=== PATIENT | male | born 1955 | race Caucasian/White ===

== ENCOUNTER 2017-02-19 19:09 | Inpatient (IN) | payer MEDICARE ==
[~2017-02-19] VITALS: Ht 165.1 cm; Wt 79.8 kg
[2017-02-19 19:15] VITALS: BP 97/56; PULSE 72; RESP 20; TEMP 98.2; O2SAT 99
[2017-02-19 19:20] VITALS: O2SAT 98
[2017-02-19] MEDS ORDERED: TETANUS/DIPHTHERIA TOXOID ADULT 0.5 ML VIAL IM ONE (19:45)
[2017-02-19] MEDS ORDERED: SODIUM CHLORIDE 0.9% FLUSH 10 ML FLUSH IVF PRN (19:45)
[2017-02-19] MEDS ORDERED: SODIUM CHLOR 0.9% 1000 ML INJ 1,000 ML IV ONE (19:45)
[2017-02-19] MEDS ORDERED: ONDANSETRON HCL 4 MG/2 ML VIAL IV PUSH ONE (19:45)
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
[2017-02-19 20:14] LABS: BASOPHIL % 0.4 % (0.0-2.0); EOSINOPHIL # 0.1 TH/MM3 (0-0.4); EOSINOPHIL % 0.7 % (0.0-4.0); HEMATOCRIT 38.6 % (39.0-51.0); HEMOGLOBIN 13.3 GM/DL (13.0-17.0); LYMPH % 5.1 % (9.0-44.0); LYMPHOCYTE # 0.5 TH/MM3 (1.0-4.8); MEAN CELL VOLUME 89.2 FL (80.0-100.0); MEAN CORPUSCULAR HEMOGLOBIN 30.9 PG (27.0-34.0); MEAN CORPUSCULAR HGB CONC 34.6 % (32.0-36.0); MEAN PLATELET VOLUME 7.6 FL (7.0-11.0); MONOCYTE # 0.7 TH/MM3 (0-0.9); NEUT % 86.8 % (16.0-70.0); PLATELET COUNT 208 TH/MM3 (150-450); RED BLOOD COUNT 4.32 MIL/MM3 (4.50-5.90); RED CELL DISTRIBUTION WIDTH 12.8 % (11.6-17.2); WHITE BLOOD COUNT 10.3 TH/MM3 (4.0-11.0)
[2017-02-19 20:34] LABS: INTERNATIONAL NORMALIZED RATIO 1.1 RATIO; PROTHROMBIN TIME - PATIENT 10.7 SEC (9.8-11.6)
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
[2017-02-19] MEDS ORDERED: IOHEXOL 350 MG/ML 10 ML VIAL (for RAD DIAG) IVCONTRAST ONE (20:38)
[2017-02-19 20:44] LABS: BICARBONATE 23.2 MEQ/L (21.0-32.0); CREATININE 0.87 MG/DL (0.60-1.30)
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
--- NOTE | 2017-02-19 21:06 | PD ---
Physical Exam Narrative Patient was seen and examined with my photo studio assistant. Data Data Last Documented VS Vital Signs Date Time Temp Pulse Resp B/P (MAP) Pulse Ox O2 Delivery O2 Flow Rate FiO2 02/19/17 21:10 66 16 141/80 (100) 98 Room Air 02/19/17 19:15 98.2 Orders Orders Chest, Single Ap (02/19/17 19:38) Ct Abd/Pel W Iv Contrast(Rout) (02/19/17 19:38) Ct Brain W/O Iv Contrast(Rout) (02/19/17 19:38) Ecg Monitoring (02/19/17 19:38) Iv Access Insert/Monitor (02/19/17 19:38) Oximetry (02/19/17 19:38) Sodium Chloride 0.9% Flush (Ns Flush) (02/19/17 19:45) Basic Metabolic Panel (Bmp) (02/19/17 19:38) Complete Blood Count With Diff (02/19/17 19:38) Prothrombin Time / Inr (Pt) (02/19/17 19:38) Act Partial Throm Time (Ptt) (02/19/17 19:38) Ct Cerv Spine W/O Contrast (02/19/17 19:38) Ct Thorax/ Chest W Iv Contrast (02/19/17 19:38) Ct Thor Spine W Iv Contrast (02/19/17 19:38) Ct Lumb Spine W Iv Contrast (02/19/17 19:38) Oxygen Administration (02/19/17 19:38) Ondansetron Inj (Zofran Inj) (02/19/17 19:45) Wound Care (02/19/17 19:38) Tetanus/Diphtheria Tox Adult (Tetanus/Di (02/19/17 19:45) Sodium Chlor 0.9% 1000 Ml Inj (Ns 1000 M (02/19/17 19:45) Hip, Uni(Ap&Lat) W Ap Pelvis (02/19/17 ) Shoulder, Limited(2vws) (02/19/17 ) Iohexol 350 Inj (Omnipaque 350 Inj) (02/19/17 20:38) Splint Or Brace Apply/Monitor (02/19/17 21:01) Type And Screen (02/19/17 21:01) Labs Laboratory Tests Test 02/19/17 19:55 White Blood Count 10.3 TH/MM3 Red Blood Count 4.32 MIL/MM3 Hemoglobin 13.3 GM/DL Hematocrit 38.6 % Mean Corpuscular Volume 89.2 FL Mean Corpuscular Hemoglobin 30.9 PG Mean Corpuscular Hemoglobin Concent 34.6 % Red Cell Distribution Width 12.8 % Platelet Count 208 TH/MM3 Mean Platelet Volume 7.6 FL Neutrophils (%) (Auto) 86.8 % Lymphocytes (%) (Auto) 5.1 % Monocytes (%) (Auto) 7.0 % Eosinophils (%) (Auto) 0.7 % Basophils (%) (Auto) 0.4 % Neutrophils # (Auto) 9.0 TH/MM3 Lymphocytes # (Auto) 0.5 TH/MM3 Monocytes # (Auto) 0.7 TH/MM3 Eosinophils # (Auto) 0.1 TH/MM3 Basophils # (Auto) 0.0 TH/MM3 CBC Comment AUTO DIFF Prothrombin Time 10.7 SEC Prothromb Time International Ratio 1.1 RATIO Activated Partial Thromboplast Time 20.4 SEC Blood Urea Nitrogen 15 MG/DL Creatinine 0.87 MG/DL Random Glucose 130 MG/DL Calcium Level 9.0 MG/DL Sodium Level 139 MEQ/L Potassium Level 3.4 MEQ/L Chloride Level 103 MEQ/L Carbon Dioxide Level 23.2 MEQ/L Anion Gap 13 MEQ/L Estimat Glomerular Filtration Rate 90 ML/MIN MDM Supervised Visit with HARRIETT: Yes Diagnosis Primary Impression: Hemopneumothorax, right Additional Impressions: Fracture of right clavicle Qualified Codes: S42.031A - Displaced fracture of lateral end of right clavicle, initial encounter for closed fracture Fracture of rib of right side Qualified Codes: S22.41XA - Multiple fractures of ribs, right side, initial encounter for closed fracture Fracture of right scapula Qualified Codes: S42.111A - Displaced fracture of body of scapula, right shoulder, initial encounter for closed fracture Fracture, pelvis closed Qualified Codes: S32.511A - Fracture of superior rim of right pubis, initial encounter for closed fracture Admitting Information Admitting Physician Requests: Kenneth Graf MD Feb 19, 2017 21:06
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
[2017-02-19 21:10] VITALS: BP 141/80; PULSE 66; RESP 16; O2SAT 98
[2017-02-19] MEDS ORDERED: MORPHINE SULFATE 2 MG/ML INJ IV PUSH ONE (21:15)
[2017-02-19 21:18] LABS: BANDS 11 % (0-6); LYMPHOCYTES 5 % (9-44); METAMYELOCYTES 1 % (0-1); MONOCYTES 6 % (0-8); NEUTROPHIL # MANUAL DIFF 9.2 TH/MM3 (1.8-7.7); POLYS (SEG NEUTROPHILS) 77 % (16-70)
[2017-02-19 21:30] VITALS: O2SAT 95
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
[2017-02-19] MEDS ORDERED: ASPI-516 CHEW (21:59)
[2017-02-19] MEDS ORDERED: ATEN25TA PO (21:59)
[2017-02-19] MEDS ORDERED: TAMS5CAP PO (21:59)
[2017-02-19] MEDS ORDERED: AMLO5 PO (21:59)
[2017-02-19] MEDS ORDERED: BISACODYL 10 MG SUPP RECTAL PRN (22:00)
[2017-02-19] MEDS ORDERED: MISCELLANEOUS NURSING INFORMATION XX SCH (22:00)
[2017-02-19] MEDS ORDERED: NALOXONE HCL 0.4 MG/ML AMP IV PUSH PRN (22:00)
[2017-02-19] MEDS ORDERED: CHLORHEXIDINE GLUCONATE 2 % 1 PACK (2 CLOTHS) TOP PRN (22:00)
[2017-02-19] MEDS ORDERED: MAGNESIUM HYDROXIDE SUSP 30 ML CUP PO PRN (22:00)
[2017-02-19] MEDS ORDERED: SENNOSIDES 8.6 MG TAB PO PRN (22:00)
[2017-02-19] MEDS ORDERED: LACTULOSE SYRUP 20 GM/30 ML CUP PO PRN (22:00)
[2017-02-19] MEDS: PCA - TOTAL MG DILAUDID DELIVERED PER SHIFT OTHER SCH (22:00)
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
[2017-02-19] MEDS: SODIUM CHLOR 0.9% 1000 ML INJ 1,000 ML IV SCH (23:27)
[2017-02-19] MEDS: ACETAMINOPHEN 1000 MG/100 ML 100 ML IV SCH (23:28)
[2017-02-19] MEDS: METHOCARBAMOL 500 MG TAB PO SCH (23:28)
[2017-02-19 23:30] VITALS: BP 111/56; PULSE 83; RESP 16; O2SAT 100
[2017-02-19] MEDS: HYDROmorphone HCL PCA 6 MG/30 ML IV SCH (23:59)
[2017-02-20] VITALS (11 sets, daily range): BP systolic 101–144; BP diastolic 52–80; PULSE 60–97; RESP 11–18; TEMP 97.6–99.1; O2SAT 97–99
[2017-02-20] MEDS: ACETAMINOPHEN 1000 MG/100 ML 100 ML IV SCH ×3 (03:17→15:49)
[2017-02-20] MEDS: CHLORHEXIDINE GLUCONATE 2 % 1 PACK (2 CLOTHS) TOP SCH (04:00)
[2017-02-20 04:38] LABS: AUTOMATED NEUTROPHIL # 7.5 TH/MM3 (1.8-7.7); BASOPHIL % 0.2 % (0.0-2.0); EOSINOPHIL % 0.1 % (0.0-4.0); HEMATOCRIT 34.7 % (39.0-51.0); HEMOGLOBIN 11.9 GM/DL (13.0-17.0); LYMPH % 4.3 % (9.0-44.0); LYMPHOCYTE # 0.4 TH/MM3 (1.0-4.8); MEAN CELL VOLUME 89.6 FL (80.0-100.0); MEAN CORPUSCULAR HEMOGLOBIN 30.7 PG (27.0-34.0); MEAN CORPUSCULAR HGB CONC 34.2 % (32.0-36.0); MEAN PLATELET VOLUME 7.6 FL (7.0-11.0); MONOCYTE # 0.9 TH/MM3 (0-0.9); NEUT % 85.4 % (16.0-70.0); PLATELET COUNT 213 TH/MM3 (150-450); RED BLOOD COUNT 3.87 MIL/MM3 (4.50-5.90); RED CELL DISTRIBUTION WIDTH 12.7 % (11.6-17.2); WHITE BLOOD COUNT 8.8 TH/MM3 (4.0-11.0)
--- NOTE | 2017-02-20 04:56 | RADRPT ---
EXAM DATE/TIME: 02/20/2017 03:57 [facility] COMPARISON: CHEST SINGLE AP, February 19, 2017, 20:12. INDICATIONS : Rib fracture. MEDICAL HISTORY : None. SURGICAL HISTORY : None. ENCOUNTER: Subsequent ACUITY: 2 days PAIN SCORE: Non-responsive. LOCATION: Bilateral chest FINDINGS: Single AP view of the chest. Patchy left lower lobe atelectasis slightly more prominent. Multiple rig ht-sided rib fractures again seen. Subcutaneous edema on the right. Cardiomediastinal silhouette with in normal limits. No evidence of pleural effusion or pneumothorax. CONCLUSION: Increase in patchy left lower lobe atelectasis. Multiple right-sided rib fractures. No pneumothorax i dentified.. Ravinder Hamilton MD on February 20, 2017 at 4:53 Board Certified Radiologist. This report was verified electronically.
[2017-02-20 05:09] LABS: BICARBONATE 25.6 MEQ/L (21.0-32.0); CALCIUM 8.5 MG/DL (8.5-10.1); CREATININE 0.76 MG/DL (0.60-1.30)
[2017-02-20] MEDS: PCA - TOTAL MG DILAUDID DELIVERED PER SHIFT OTHER SCH ×3 (05:30→21:53)
[2017-02-20] MEDS: METHOCARBAMOL 500 MG TAB PO SCH ×3 (06:00→21:52)
[2017-02-20] MEDS: FAMOTIDINE 20 MG TAB PO SCH ×2 (09:24→20:53)
[2017-02-20] MEDS: DOCUSATE SODIUM 50 MG/SENNA 8.6 MG TAB PO SCH ×2 (09:24→20:53)
[2017-02-20] MEDS: LIDOCAINE HCL 5% PATCH T-DERMAL SCH (09:25)
[2017-02-20] MEDS: SODIUM CHLOR 0.9% 1000 ML INJ 1,000 ML IV SCH ×2 (10:07→21:03)
[2017-02-20] MEDS: ENOXAPARIN SODIUM 30 MG/0.3 ML SYRINGE SQ SCH ×2 (10:49→23:22)
[2017-02-20] MEDS: BACITRACIN TOP OINT 15 GM TUBE TOPICAL SCH ×2 (12:03→21:00)
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
[2017-02-20] MEDS: HYDROmorphone HCL PCA 6 MG/30 ML IV SCH (15:48)
[2017-02-20] MEDS: ONDANSETRON HCL 4 MG/2 ML VIAL IV PUSH PRN (19:05)
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
[2017-02-21] VITALS (8 sets, daily range): BP systolic 111–157; BP diastolic 65–77; PULSE 65–83; RESP 12–19; TEMP 97.7–98.9; O2SAT 92–99
[2017-02-21] MEDS: CHLORHEXIDINE GLUCONATE 2 % 1 PACK (2 CLOTHS) TOP SCH (04:00)
[2017-02-21 04:24] LABS: AUTOMATED NEUTROPHIL # 5.3 TH/MM3 (1.8-7.7); BASOPHIL % 0.3 % (0.0-2.0); EOSINOPHIL # 0.1 TH/MM3 (0-0.4); EOSINOPHIL % 1.8 % (0.0-4.0); HEMATOCRIT 34.1 % (39.0-51.0); HEMOGLOBIN 11.5 GM/DL (13.0-17.0); LYMPHOCYTE # 0.4 TH/MM3 (1.0-4.8); MEAN CELL VOLUME 92.6 FL (80.0-100.0); MEAN CORPUSCULAR HEMOGLOBIN 31.3 PG (27.0-34.0); MEAN CORPUSCULAR HGB CONC 33.8 % (32.0-36.0); MEAN PLATELET VOLUME 7.6 FL (7.0-11.0); MONO % 10.4 % (0.0-8.0); MONOCYTE # 0.7 TH/MM3 (0-0.9); NEUT % 81.5 % (16.0-70.0); PLATELET COUNT 166 TH/MM3 (150-450); RED BLOOD COUNT 3.68 MIL/MM3 (4.50-5.90); RED CELL DISTRIBUTION WIDTH 12.8 % (11.6-17.2); WHITE BLOOD COUNT 6.5 TH/MM3 (4.0-11.0)
[2017-02-21 04:34] LABS: AST (GOT) 31 U/L (15-37); BICARBONATE 24.3 MEQ/L (21.0-32.0); BLOOD UREA NITROGEN 10 MG/DL (7-18); CALCIUM 8.4 MG/DL (8.5-10.1); CHLORIDE 108 MEQ/L (98-107); CREATININE 0.65 MG/DL (0.60-1.30); GLOMERULAR FILTRATION RATE 126 ML/MIN (>89); GLUCOSE,RANDOM 112 MG/DL (74-106); SODIUM (NA) 139 MEQ/L (136-145)
[2017-02-21 04:38] LABS: ALKALINE PHOSPHATASE 47 U/L (45-117); ALT (GPT) 47 U/L (12-78); TOTAL BILIRUBIN ADULT 0.8 MG/DL (0.2-1.0); TOTAL PROTEIN 6.5 GM/DL (6.4-8.2)
[2017-02-21] MEDS: METHOCARBAMOL 500 MG TAB PO SCH ×3 (06:00→21:33)
[2017-02-21] MEDS: PCA - TOTAL MG DILAUDID DELIVERED PER SHIFT OTHER SCH (06:00)
--- NOTE | 2017-02-21 06:18 | RADRPT ---
EXAM DATE/TIME: 02/21/2017 05:27 [facility] COMPARISON: CHEST SINGLE AP, February 20, 2017, 3:57. INDICATIONS : Evaluate [place] [facility] [place] : None. SURGICAL HISTORY : None. ENCOUNTER: Subsequent ACUITY: 3 days PAIN SCORE: 8/10 LOCATION: Bilateral chest FINDINGS: Displaced/overlapping right rib fractures are again noted. There is patchy parenchymal consolidation diffusely of the right lung and small pleural effusion, including some loculated superiorly and later ally not significantly changed. I don't see a pneumothorax but mild right chest wall emphysema persis ts. Mild atelectasis in left lung base. CONCLUSION: No significant change. No perceptible pneumothorax although some right chest wall emphysema persists. Oliver Rader MD on February 21, 2017 at 6:15 Board Certified Radiologist. This report was verified electronically.
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
[2017-02-21] MEDS: BACITRACIN TOP OINT 15 GM TUBE TOPICAL SCH ×2 (08:17→20:22)
[2017-02-21] MEDS: FAMOTIDINE 20 MG TAB PO SCH ×2 (08:20→20:20)
[2017-02-21] MEDS: DOCUSATE SODIUM 50 MG/SENNA 8.6 MG TAB PO SCH ×2 (08:20→20:20)
[2017-02-21] MEDS: LIDOCAINE HCL 5% PATCH T-DERMAL SCH (08:20)
[2017-02-21] MEDS: SODIUM CHLOR 0.9% 1000 ML INJ 1,000 ML IV SCH ×2 (09:34→21:34)
[2017-02-21] MEDS ORDERED: MORPHINE SULFATE 2 MG/ML INJ SQ PRN ×2 (10:00→16:00)
[2017-02-21] MEDS ORDERED: PNEUMOCOCCAL POLYVALENT INJ 25 MCG/0.5 ML SYR IM ONE (10:00)
[2017-02-21] MEDS ORDERED: INFLUENZA VIRUS VACCINE (QUADRIVALENT) 0.5 ML SYR IM ONE (10:00)
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
[2017-02-21] MEDS: ENOXAPARIN SODIUM 30 MG/0.3 ML SYRINGE SQ SCH (11:16)
[2017-02-21] MEDS: KETOROLAC TROMETHAMINE 30 MG/ML (IVP) VIAL IV PUSH SCH ×2 (11:17→15:27)
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
[2017-02-21] MEDS: ACETAMINOPHEN 1000 MG/100 ML 100 ML IV SCH ×2 (14:00→20:19)
[2017-02-21] MEDS: MAGNESIUM HYDROXIDE SUSP 30 ML CUP PO SCH (15:32)
[2017-02-22] VITALS: BP 122/74; PULSE 86; RESP 18; TEMP 97.4; O2SAT 94
[2017-02-22] MEDS: ACETAMINOPHEN 1000 MG/100 ML 100 ML IV SCH ×2 (02:22→10:02)
[2017-02-22] MEDS: ONDANSETRON HCL 4 MG/2 ML VIAL IV PUSH PRN (04:27)
[2017-02-22] MEDS: METHOCARBAMOL 500 MG TAB PO SCH ×3 (05:25→20:53)
[2017-02-22] MEDS: KETOROLAC TROMETHAMINE 30 MG/ML (IVP) VIAL IV PUSH SCH ×5 (05:25→22:34)
[2017-02-22] MEDS: MAGNESIUM HYDROXIDE SUSP 30 ML CUP PO SCH ×2 (05:27→17:34)
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
[2017-02-22 08:00] VITALS: BP 107/62; PULSE 78; RESP 17; TEMP 97.9; O2SAT 94
[2017-02-22 08:23] LABS: AUTOMATED NEUTROPHIL # 4.4 TH/MM3 (1.8-7.7); BASOPHIL % 0.1 % (0.0-2.0); EOSINOPHIL # 0.1 TH/MM3 (0-0.4); EOSINOPHIL % 1.2 % (0.0-4.0); HEMATOCRIT 29.4 % (39.0-51.0); HEMOGLOBIN 10.5 GM/DL (13.0-17.0); LYMPH % 2.3 % (9.0-44.0); LYMPHOCYTE # 0.1 TH/MM3 (1.0-4.8); MEAN CELL VOLUME 89.6 FL (80.0-100.0); MEAN CORPUSCULAR HEMOGLOBIN 32.1 PG (27.0-34.0); MEAN CORPUSCULAR HGB CONC 35.8 % (32.0-36.0); MEAN PLATELET VOLUME 7.9 FL (7.0-11.0); MONO % 7.5 % (0.0-8.0); MONOCYTE # 0.4 TH/MM3 (0-0.9); NEUT % 88.9 % (16.0-70.0); PLATELET COUNT 163 TH/MM3 (150-450); RED BLOOD COUNT 3.28 MIL/MM3 (4.50-5.90); RED CELL DISTRIBUTION WIDTH 12.4 % (11.6-17.2); WHITE BLOOD COUNT 4.9 TH/MM3 (4.0-11.0)
[2017-02-22 08:42] LABS: ALBUMIN 2.5 GM/DL (3.4-5.0); ALT (GPT) 33 U/L (12-78); AST (GOT) 23 U/L (15-37); BICARBONATE 25.5 MEQ/L (21.0-32.0); BLOOD UREA NITROGEN 11 MG/DL (7-18); CALCIUM 7.7 MG/DL (8.5-10.1); CHLORIDE 108 MEQ/L (98-107); GLOMERULAR FILTRATION RATE 138 ML/MIN (>89); GLUCOSE,RANDOM 106 MG/DL (74-106); SODIUM (NA) 140 MEQ/L (136-145)
[2017-02-22 08:44] LABS: ALKALINE PHOSPHATASE 44 U/L (45-117); TOTAL PROTEIN 5.8 GM/DL (6.4-8.2)
[2017-02-22] MEDS: LACTULOSE SYRUP 20 GM/30 ML CUP PO SCH (09:00)
[2017-02-22] MEDS: DOCUSATE SODIUM 50 MG/SENNA 8.6 MG TAB PO SCH ×2 (09:00→20:55)
[2017-02-22] MEDS: FAMOTIDINE 20 MG TAB PO SCH ×2 (09:58→20:53)
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
[2017-02-22] MEDS: LIDOCAINE HCL 5% PATCH T-DERMAL SCH (10:01)
[2017-02-22] MEDS: BACITRACIN TOP OINT 15 GM TUBE TOPICAL SCH ×2 (10:02→20:56)
[2017-02-22] MEDS: ENOXAPARIN SODIUM 30 MG/0.3 ML SYRINGE SQ SCH ×3 (10:36→22:36)
[2017-02-22 11:15] VITALS: BP 130/72; PULSE 69; RESP 17; TEMP 97.4; O2SAT 96
[2017-02-22] MEDS: SODIUM CHLOR 0.9% 1000 ML INJ 1,000 ML IV SCH ×2 (12:04→22:36)
[2017-02-22] MEDS ORDERED: MAGN30S PO (13:08)
[2017-02-22] MEDS ORDERED: PERI PO (13:08)
[2017-02-22 15:03] VITALS: BP 111/69; PULSE 67; RESP 17; TEMP 97.1; O2SAT 96
[2017-02-22 15:42] VITALS: O2SAT 96
[2017-02-22 20:00] VITALS: BP 119/65; PULSE 74; RESP 20; TEMP 98.2; O2SAT 95
[2017-02-22] MEDS: TAMSULOSIN HCL 0.4 MG CAP PO SCH (20:53)
[2017-02-23] VITALS (9 sets, daily range): BP systolic 121–155; BP diastolic 64–88; PULSE 55–79; RESP 15–18; TEMP 95.6–99; O2SAT 93–97
[2017-02-23] MEDS: KETOROLAC TROMETHAMINE 30 MG/ML (IVP) VIAL IV PUSH SCH ×4 (04:39→23:30)
[2017-02-23] MEDS: METHOCARBAMOL 500 MG TAB PO SCH ×3 (04:40→21:10)
[2017-02-23] MEDS: MAGNESIUM HYDROXIDE SUSP 30 ML CUP PO SCH ×2 (05:33→16:30)
[2017-02-23 05:51] LABS: AUTOMATED NEUTROPHIL # 3.5 TH/MM3 (1.8-7.7); BASOPHIL % 0.3 % (0.0-2.0); EOSINOPHIL # 0.1 TH/MM3 (0-0.4); EOSINOPHIL % 2.5 % (0.0-4.0); HEMATOCRIT 29.3 % (39.0-51.0); HEMOGLOBIN 10.3 GM/DL (13.0-17.0); LYMPH % 4.5 % (9.0-44.0); LYMPHOCYTE # 0.2 TH/MM3 (1.0-4.8); MEAN CELL VOLUME 90.2 FL (80.0-100.0); MEAN CORPUSCULAR HEMOGLOBIN 31.7 PG (27.0-34.0); MEAN CORPUSCULAR HGB CONC 35.2 % (32.0-36.0); MONO % 9.7 % (0.0-8.0); MONOCYTE # 0.4 TH/MM3 (0-0.9); PLATELET COUNT 198 TH/MM3 (150-450); RED BLOOD COUNT 3.25 MIL/MM3 (4.50-5.90); RED CELL DISTRIBUTION WIDTH 12.8 % (11.6-17.2); WHITE BLOOD COUNT 4.2 TH/MM3 (4.0-11.0)
[2017-02-23 06:15] LABS: ALBUMIN 2.7 GM/DL (3.4-5.0); AST (GOT) 29 U/L (15-37); BICARBONATE 23.6 MEQ/L (21.0-32.0); BLOOD UREA NITROGEN 13 MG/DL (7-18); CALCIUM 7.8 MG/DL (8.5-10.1); CHLORIDE 108 MEQ/L (98-107); CREATININE 0.72 MG/DL (0.60-1.30); GLOMERULAR FILTRATION RATE 112 ML/MIN (>89); GLUCOSE,RANDOM 127 MG/DL (74-106); SODIUM (NA) 139 MEQ/L (136-145)
[2017-02-23 06:19] LABS: ALKALINE PHOSPHATASE 44 U/L (45-117); ALT (GPT) 31 U/L (12-78); TOTAL PROTEIN 6.5 GM/DL (6.4-8.2)
--- NOTE | 2017-02-23 06:51 | RADRPT ---
EXAM DATE/TIME: 02/23/2017 06:10 [facility] COMPARISON: CHEST SINGLE AP, February 22, 2017, 4:57. INDICATIONS : Evaluate for pneumothorax, rib fractures post trauma. MEDICAL HISTORY : None. SURGICAL HISTORY : None. ENCOUNTER: Subsequent ACUITY: 4 - 6 days PAIN SCORE: Non-responsive. LOCATION: Bilateral chest FINDINGS: A single view of the chest demonstrates the lungs to be symmetrically aerated without evidence of mas s, infiltrate or effusion. The cardiomediastinal contours are unremarkable. Right clavicular fractur e and right-sided rib fractures are unchanged. No pneumothorax. A small amount of subcutaneous air ov erlies the right chest. CONCLUSION: 1. Clear lungs. No pneumothorax. 2. Right clavicular fracture and right-sided rib fractures. Sukhjinder Wheeler Jr., MD on February 23, 2017 at 6:49 Board Certified Radiologist. This report was verified electronically.
[2017-02-23] MEDS: LACTULOSE SYRUP 20 GM/30 ML CUP PO SCH (09:00)
[2017-02-23] MEDS: LIDOCAINE HCL 5% PATCH T-DERMAL SCH (09:00)
[2017-02-23] MEDS: FAMOTIDINE 20 MG TAB PO SCH ×3 (09:00→19:43)
[2017-02-23] MEDS: SODIUM CHLOR 0.9% 1000 ML INJ 1,000 ML IV SCH ×2 (09:25→19:36)
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
[2017-02-23] MEDS: DOCUSATE SODIUM 50 MG/SENNA 8.6 MG TAB PO SCH ×2 (09:32→19:40)
[2017-02-23] MEDS: BACITRACIN TOP OINT 15 GM TUBE TOPICAL SCH ×2 (09:33→19:41)
[2017-02-23] MEDS: ENOXAPARIN SODIUM 30 MG/0.3 ML SYRINGE SQ SCH ×2 (11:53→23:29)
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
[2017-02-23] MEDS: TAMSULOSIN HCL 0.4 MG CAP PO SCH (19:39)
[2017-02-24 03:37] VITALS: BP 142/76; PULSE 65; RESP 16; TEMP 96.3; O2SAT 96
[2017-02-24] MEDS: MAGNESIUM HYDROXIDE SUSP 30 ML CUP PO SCH ×2 (05:41→18:00)
[2017-02-24] MEDS: METHOCARBAMOL 500 MG TAB PO SCH ×3 (05:41→20:45)
[2017-02-24] MEDS: KETOROLAC TROMETHAMINE 30 MG/ML (IVP) VIAL IV PUSH SCH ×4 (05:41→23:18)
[2017-02-24 07:36] VITALS: BP 159/75; PULSE 81; RESP 19; TEMP 97.1; O2SAT 96
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
[2017-02-24] MEDS: DOCUSATE SODIUM 50 MG/SENNA 8.6 MG TAB PO SCH ×2 (09:00→20:45)
[2017-02-24] MEDS: FAMOTIDINE 20 MG TAB PO SCH ×2 (09:00→20:46)
[2017-02-24] MEDS: LACTULOSE SYRUP 20 GM/30 ML CUP PO SCH (09:00)
[2017-02-24] MEDS: BACITRACIN TOP OINT 15 GM TUBE TOPICAL SCH ×2 (09:00→20:46)
[2017-02-24] MEDS: LIDOCAINE HCL 5% PATCH T-DERMAL SCH (09:00)
[2017-02-24 11:34] VITALS: BP 156/77; PULSE 82; RESP 19; TEMP 97.6; O2SAT 99
[2017-02-24] MEDS ORDERED: METH500T3 PO (12:42)
[2017-02-24] MEDS ORDERED: PERC5TAB12 PO (12:42)
[2017-02-24] MEDS: ENOXAPARIN SODIUM 30 MG/0.3 ML SYRINGE SQ SCH ×2 (13:20→23:18)
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
[2017-02-24] MEDS: SODIUM CHLOR 0.9% 1000 ML INJ 1,000 ML IV SCH (19:14)
[2017-02-24 19:45] VITALS: BP 129/71; PULSE 79; RESP 16; TEMP 97.3; O2SAT 95
[2017-02-24] MEDS: TAMSULOSIN HCL 0.4 MG CAP PO SCH (20:45)
[2017-02-24 23:35] VITALS: BP 146/70; PULSE 72; RESP 16; TEMP 97.9; O2SAT 95
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
[2017-02-25 04:10] VITALS: BP 136/78; PULSE 82; RESP 16; TEMP 98; O2SAT 94
[2017-02-25] MEDS: KETOROLAC TROMETHAMINE 30 MG/ML (IVP) VIAL IV PUSH SCH (05:23)
[2017-02-25] MEDS: MAGNESIUM HYDROXIDE SUSP 30 ML CUP PO SCH (05:23)
[2017-02-25] MEDS: METHOCARBAMOL 500 MG TAB PO SCH (05:23)
[2017-02-25 07:50] VITALS: BP 145/81; PULSE 82; RESP 19; TEMP 97.8; O2SAT 97
[2017-02-25] MEDS: LIDOCAINE HCL 5% PATCH T-DERMAL SCH (08:40)
[2017-02-25] MEDS: LACTULOSE SYRUP 20 GM/30 ML CUP PO SCH (08:40)
[2017-02-25] MEDS: FAMOTIDINE 20 MG TAB PO SCH (08:40)
[2017-02-25] MEDS: DOCUSATE SODIUM 50 MG/SENNA 8.6 MG TAB PO SCH (08:40)
[2017-02-25] MEDS: BACITRACIN TOP OINT 15 GM TUBE TOPICAL SCH (08:41)
[2017-02-25] MEDS: SODIUM CHLOR 0.9% 1000 ML INJ 1,000 ML IV SCH (08:41)
[2017-02-25] MEDS: ENOXAPARIN SODIUM 30 MG/0.3 ML SYRINGE SQ SCH (10:52)
[2017-02-25 12:00] VITALS: BP 134/65; PULSE 80; RESP 19; TEMP 96.6; O2SAT 98
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
[2017-02-26 14:57] LABS: BIOAVAILABLE TESTOSTERONE <0.9 ng/dL (50-190); TOTAL TESTOSTERONE <7.0 ng/dL (240-950)
== END 2017-02-25 13:48 | DRG 964 ==
LOC: NEPC 19:09 → NEDA 21:26 → N03B 23:37 → N06A 02-21 12:31
PROVIDERS: ADMIT Surgery Trauma Surgery; ATTEND Surgery Trauma Surgery
DX: S32.591A Other specified fracture of right pubis, initial encounter for closed fracture (principal); S27.2XXA Traumatic hemopneumothorax, initial encounter; S22.41XA Multiple fractures of ribs, right side, initial encounter for closed fracture; C79.51 Secondary malignant neoplasm of bone; C61 Malignant neoplasm of prostate; S42.031A Displaced fracture of lateral end of right clavicle, initial encounter for closed fracture; S42.101A Fracture of unspecified part of scapula, right shoulder, initial encounter for closed fracture; S00.81XA Abrasion of other part of head, initial encounter; V29.88XA Motorcycle rider (driver) (passenger) injured in other specified transport accidents, initial encounter; Y93.9 Activity, unspecified; Y92.410 Unspecified street and highway as the place of occurrence of the external cause; I25.10 Atherosclerotic heart disease of native coronary artery without angina pectoris; Z95.5 Presence of coronary angioplasty implant and graft; I25.2 Old myocardial infarction; I10 Essential (primary) hypertension; G47.30 Sleep apnea, unspecified; Z92.3 Personal history of irradiation; Z87.891 Personal history of nicotine dependence
CPT/HCPCS: 70450; 71010; 71045; 71260; 72125; 72129; 72132; 73030; 73502; 74177; 80048; 80053; 84153; 84403; 84410; 85007; 85025; 85027; 85610; 85730; 86850; 86900; 86901; 87641; 90471; 90686; 90714; 90732; 94150; 94640; 94667; 94668; 96374; J0131; J1170; J1650; J1885; J2270; J2405; J7030; Q2038; Q9967